=== PATIENT | male | born 1975 | race Hispanic/Latino ===

== ENCOUNTER 2024-05-19 19:31 | Emergency (ER) | payer SELFPAY ==
[2024-05-19] MEDS ORDERED: diphenhydrAMINE 50 MG/ML VIAL ONE (20:35)
[2024-05-19] MEDS ORDERED: Metoclopramide HCl 10 MG (2 mL) VIAL ONE (20:35)
[2024-05-19] MEDS ORDERED: Ketorolac Tromethamine 30 MG (1 mL) VIAL ONE (20:35)
[2024-05-19] MEDS ORDERED: Acetaminophen 500 MG TAB ONE (20:35)
[2024-05-19 20:38] LABS: #Basophils 0.07 10x3/uL (0.0-0.2); %Basophils 0.8 % (0.0-1.0); %Eosinophils 5.7 % (0.0-10.0); %Lymphocytes 26.6 % (21.0-51.0); %Monocytes 11.6 % (0.0-10.0); %Neutrophils 54.9 % (42.0-75.0); Hematocrit 39.5 % (42.0-52.0); Hemoglobin 14.8 g/dL (14.0-18.0); Mean Corpuscular HGB CONC 37.5 g/dL (32.0-36.0); Mean Corpuscular Hemoglobin 32.7 pg (27.0-31.0); Mean Corpuscular Volume 87.4 fL (78.0-98.0); Mean Platelet Volume 9.8 fL (7.4-10.4); Platelet Count 277 10x3/uL (130-400); RBC Distribution Width 11.7 % (11.5-14.5); Red Blood Cell (RBC) Count 4.52 mill/uL (4.70-6.10)
[2024-05-19 20:55] LABS: ALT (SGPT) 24 U/L (8-55); AST (SGOT) 30 U/L (5-34); Albumin 3.5 g/dL (3.5-5.0); Alkaline Phosphatase 106 U/L (40-110); Anion Gap 13 mmol/L (10-20); BUN (Urea Nitrogen) 6 mg/dL (8.9-20.6); Bilirubin, Total 0.3 mg/dL (0.2-1.2); Calc. Creatinine Clearance 0 mL/min (70-130); Calcium 9.3 mg/dL (7.8-10.44); Carbon Dioxide 22 mmol/L (22-29); Chloride 103 mmol/L (98-107); Estimated GFR 114; Globulin 3.4 g/dL (2.4-3.5); Glucose 98 mg/dL (70-105); Potassium 3.7 mmol/L (3.5-5.1); Protein, Total 6.9 g/dL (6.0-8.3); Sodium 134 mmol/L (136-145)
== END 2024-05-19 21:28 | disposition home or self-care (01) ==
LOC: ERS 19:31
DX: S09.90XA Unspecified injury of head, initial encounter (principal); R51.9 Headache, unspecified; F17.210 Nicotine dependence, cigarettes, uncomplicated; W01.10XA Fall on same level from slipping, tripping and stumbling with subsequent striking against unspecified object, initial encounter
CPT/HCPCS: 70450; 80053; 85025; 96365; 96375; J1200; J1885; J2765

== ENCOUNTER 2024-05-20 20:26 | Emergency (ER) | payer SELFPAY | END 2024-05-20 20:30 | disposition left against medical advice (07) | LOC: ERS 20:26 | DX: Z53.21 Procedure and treatment not carried out due to patient leaving prior to being seen by health care provider (principal) ==